=== PATIENT | female | born 1950 | race Two or more races ===

== ENCOUNTER 2025-03-26 17:25 | Inpatient (IN) | payer OTHER ==
[~2025-03-26] VITALS: Ht 162.6 cm; Wt 85.6 kg
--- NOTE | 2025-03-26 17:41 | ED.PDOC ---
History of Present Illness HPI Comments 74 y.o female with PMHx of HTN and arthritis, presents to the ED for an evaluation of an abnormal EKG today. [facility] a 5 day history of dizziness, states she had an EKG done in which showed AFIB but states she has no history of it. Patient states while awaiting at the urgent care, dizziness subsided and now is asymptomatic. Patient denies any chest pain, palpitations, nausea, vomiting, fever, chills. Chief Complaint: Abnormal LAB's Time Seen by MD: 17:34 Reviewed Notes: Nurses Notes, Medications, Allergies Allergies: Coded Allergies: NO KNOWN ALLERGIES (Unverified , 03/26/25) Information Source: Patient, Spouse Mode of Arrival: Ambulatory Severity: Moderate Timing: Hours Duration: Since onset Past Medical History PAST MEDICAL HISTORY: Arthritis, HTN Surgical History: TRANSITIONS RN CARE COORDINATOR History: No Pertinent TRANSITIONS RN CARE COORDINATOR History Family History Family History: Reviewed,noncontributory to illness Social History Smoker: Non-Smoker Alcohol: Denies ETOH Use Drugs: Denies Drug Use Lives In: Home Constitutional: denies: chills, diaphoresis, fatigue, fever, malaise, sweats, weakness, others EENTM: denies: blurred vision, double vision, ear bleeding, ear discharge, ear drainage, ear pain, ear ringing, eye pain, eye redness, hearing loss, mouth pain, mouth swelling, nasal discharge, nose bleeding, nose congestion, nose pain, photophobia, tearing, throat pain, throat swelling, voice changes, others Respiratory: denies: cough, hemoptysis, orthopnea, SOB at rest, shortness of breath, SOB with excertion, stridor, wheezing, others Cardiovascular: denies: chest pain, dizzy spells, diaphoresis, Dyspnea on exertion, edema, irregular heart beat, left arm pain, lightheadedness, palpita tions, PND, syncope, others Gastrointestinal: denies: abdomen distended, abdominal pain, blood streaked april wels, constipated, diarrhea, dysphagia, difficulty swallowing, hematemesis, melena, nausea, poor appetite, poor fluid intake, rectal bleeding, rectal pain, vomiting, others Genitourinary: denies: abnormal vagina bleeding, burning, dyspareunia, dysuria, flank pain, frequency, hematuria, incontinence, pain, , vagina discharge, urgency, others Neurological: denies: dizziness, fainting, headache, left sided numbness, left sided weakness, numbness, paresthesia, pre-existing deficit, right sided numbness, right sided weakness, seizure, speech problems, tingling, tremors, weakness, others Musculoskeletal: denies: back pain, gout, joint pain, joint swelling, muscle pain, muscle stiffness, neck pain, others Integumetry: denies: bruises, change in color, change in hair/nails, dryness, laceration, lesions, lumps, rash, wounds, others Allergic/Immunocompromised: denies: Difficulty Healing, Frequent Infections, Hives, Itching, others Hematologic/Lymphatic: denies: anemia, blood clots, easy bleeding, easy bruis ing, swollen glands, others Endocrine: denies: excessive hunger, excessive sweating, excessive thirst, exc essive urination, flushing, intolerance to cold, intolerance to heat, unexplained weight gain, unexplained weight loss, others Psychiatric: denies: anxiety, bipolar disorder, depression, hopeless, panic disorder, schizophrenia, sleepless, suicidal, others All Other Systems: Reviewed and Negative Physical Exam General Appearance: Moderate Distress, Obese HEENT: Normal ENT Inspection, Pharynx Normal, TMs Normal Neck: Full Range of Motion, Non-Tender, Normal, Normal Inspection Respiratory: Chest Non-Tender, Lungs Clear, No Accessory Muscle Use, No Respiratory Distress, Normal Breath Sounds Cardiovascular: Irregular, No Edema, No JVD, No Murmur, No Gallop Breast Exam: Deferred Gastrointestinal: No Organomegaly, Non Tender, No Pulsatile Mass, Normal Bowel Sounds, Soft Genitalia: Deferred Pelvic: Deferred Rectal: Deferred Extremities: No calf tenderness, Normal capillary refill, No pedal edema Musculoskeletal : Apperance: Normal Neurologic: Alert, carpenter apprentice II-XII nml as Tested, Motor Weakness, Normal Affect, Normal Mood, No Sensory Deficits Cerebellar Function: Normal Reflexes: Normal Skin: Dry, Normal Color, Warm Lymphatic: No Adenopathy Was a procedure done? Was a procedure done?: No Differential Dx Considerations may include: New onset AFIB, Dehydration, Vertigo, Electrolyte imbalance X-Ray, Labs, Meds, VS Vital Signs Date Time Temp Pulse Resp B/P (MAP) Pulse Ox O2 Delivery O2 Flow Rate FiO2 03/26/25 17:42 98 7/28/25 17:32 98.4 77 18 112/71 (85) 97 98.4 Lab Test 03/26/25 19:16 03/26/25 17:59 Range/Units Troponin I High Sensitivity 6 6 </=34 ng/L White Blood Count 8.3 4.4-10.8 10^3/uL Red Blood Count 4.68 4.0-5.20 10^6/uL Hemoglobin 15.2 12.2-16.2 g/dL Hematocrit 44.0 36.0-46.0 % Mean Corpuscular Volume 94.0 80.0-100.0 fL Mean Corpuscular Hemoglobin 32.4 H 28.0-32.0 pg Mean Corpuscular Hemoglobin Concent 34.5 32.0-36.0 g/dL Red Cell Distribution Width 14.6 H 11.8-14.3 % Platelet Count 253 140-450 10^3/uL Mean Platelet Volume 8.2 6.9-10.8 fL Neutrophils (%) (Auto) 68.1 37.0-80.0 % Lymphocytes (%) (Auto) 21.5 10.0-50.0 % Monocytes (%) (Auto) 8.5 0.0-12.0 % Eosinophils (%) (Auto) 1.0 0.0-7.0 % Basophils (%) (Auto) 0.9 0.0-2.0 % Neutrophils # (Auto) 5.7 1.6-8.6 10 ^3/uL Lymphocytes # (Auto) 1.8 0.4-5.4 10 ^3/uL Monocytes # (Auto) 0.7 0-1.3 10 ^3/uL Eosinophils # (Auto) 0.1 0-0.8 10 ^3/uL Basophils # (Auto) 0.1 0-0.2 10 ^3/uL Nucleated Red Blood Cells 0.1 % Sodium Level 144 136-145 mmol/L Potassium Level 4.0 3.5-5.1 mmol/L Chloride Level 105 98-107 mmol/L Carbon Dioxide Level 30 20-31 mmol/L Anion Gap 9 5-15 Blood Urea Nitrogen 18 9-23 mg/dL Creatinine 1.20 H 0.550-1.02 mg/dL Glomerular Filtration Rate Calc 48 >90 mL/min BUN/Creatinine Ratio 15.0 10.0-20.0 Serum Glucose 108 H 74-106 mg/dL Calcium Level 9.7 8.7-10.4 mg/dL Magnesium Level 2.1 1.6-2.6 mg/dL IV Hep-Lock was established The CBC is within normal limits The chemistry panel is within normal limits except for creatinine of 1.2 The patient's troponin level x2 is within normal limits The chest x-ray shows: No sign of any abnormalities The patient is being admitted at this time Images Reviewed?: Images reviewed and evaluated by me Time of 1ST Reevaluation: 17:41 Reevaluation 1ST: Unchanged Patient Education/Counseling: Diagnosis, Treatment, Prognosis Family Education/Counseling: Diagnosis, Treatment, Prognosis SEPSIS Sepsis Screen Physician Orders Urinalysis (03/26/25 17:38) Chest Two Views Routine (03/26/25 17:38) Heplock Iv (03/26/25 17:38) Commercial Loan Manager (03/26/25 17:38) Blood Pressure (03/26/25 17:38) Pulse Oximetry (03/26/25 17:38) Troponin-I Hs (03/26/25 20:38) Electrocardigram (03/26/25 18:38) Electrocardigram (03/26/25 20:38) Vital Signs Date Time Temp Pulse Resp B/P (MAP) Pulse Ox O2 Delivery O2 Flow Rate FiO2 03/26/25 17:42 98 03/26/25 17:32 98.4 77 18 112/71 (85) 97 98.4 Laboratory Tests Test 03/26/25 17:59 White Blood Count 8.3 10^3/uL (4.4-10.8) Departure 1 Departure Time of Disposition: 20:49 Impression: Primary Impression: Autonomic dysfunction Additional Impression: New onset atrial fibrillation Disposition: ADMITTED INPATIENT Admit to: [facility] Condition: Fair Discharged With: Self Critical Care Note Critical Care Time?: Yes (45 min-critical care time only) Stability Stability form required: Yes Unstable for transfer: Telemetry monitoring (Telemetry monitoring required), ED Physician Assesment (Clinical assesment) I personally scribed for JOE MOSER MD ([email or web address]) on 03/26/25 at 17:41. Electronically submitted by Cecilia Dyer ([email or web address]). JOE MOSER MD Mar 26, 2025 17:41
--- NOTE | 2025-03-26 17:43 | ECG ---
[facility] Test Date: 2025-03-26 Test Time: 17:42:29 Pat Name: NIVIA SHAW Department: [facility] ED Room: [address] [place] [address] Gender: F Repairer General: fredy : 1950 Requested By: JOE MOSER Order Number: [id number] Reading MD: Luis Angel Franco Measurements Intervals [place] Rate: 98 P: 0 DE: 0 QRS: 3 QRSD: 85 T: 66 QT: 350 QTc: 447 Interpretive Statements Atrial fibrillation Low voltage, extremity leads Electronically Signed On 03-28-2025 17:50:47 PDT by Luis Angel Franco Please click the below link to view image of tracing.
--- NOTE | 2025-03-26 18:10 | DVH ---
EXAM: XY CHEST TWO VIEWS ROUTINE CLINICAL HISTORY: weakness TECHNIQUE: Frontal and lateral views of the chest WID: COMPARISON: None FINDINGS: Lines and tubes: None Chest: The heart size and pulmonary vasculature is within normal limits. Calcified plaque projects over the aortic arch. No pleural effusion, pneumothorax, or consolidation. The osseous structures are grossly intact. Multilevel thoracic spondylosis. IMPRESSION: No acute cardiopulmonary abnormality.
[2025-03-26 18:33] LABS: Hematocrit 44.0 % (36.0-46.0); Hemoglobin 15.2 g/dL (12.2-16.2); Mean Corpuscular Hemoglobin 32.4 pg (28.0-32.0); Mean Corpuscular Volume 94.0 fL (80.0-100.0); Nucleated Red Blood Cells % 0.1 %
[2025-03-26 18:36] LABS: Chloride 105 mmol/L (98-107); Potassium 4.0 mmol/L (3.5-5.1); Sodium 144 mmol/L (136-145)
[2025-03-26 18:37] LABS: Anion Gap 9 (5-15); Carbon Dioxide 30 mmol/L (20-31)
[2025-03-26 18:38] LABS: Calcium 9.7 mg/dL (8.7-10.4)
[2025-03-26 18:43] LABS: BUN/Creatinine Ratio 15.0 (10.0-20.0); Blood Urea Nitrogen 18 mg/dL (9-23); Magnesium 2.1 mg/dL (1.6-2.6)
[2025-03-26 18:48] LABS: Glucose 108 mg/dL (74-106)
[2025-03-26] MEDS ORDERED: MORPHINE SULFATE INJ 2 MG/ml SYRG IV PRN (21:00)
[2025-03-26] MEDS ORDERED: ACETAMINOPHEN 325 MG TAB PO PRN (21:00)
[2025-03-26] MEDS: ONDANSETRON HCL 4 MG/2 ML VIAL IV ONE (21:00)
[2025-03-26] MEDS ORDERED: NITROGLYCERIN 0.4 MG SL TAB SL PRN (21:00)
[2025-03-26] MEDS ORDERED: HYDROcodone-ACET 5/325MG TAB PO PRN (21:00)
[2025-03-26] MEDS ORDERED: MELATONIN 5 MG TAB PO PRN (21:00)
[2025-03-26] MEDS: AMIODARONE BOLUS KIT 100 ML IV ONE (21:30)
[2025-03-26] MEDS: AMIODARONE 360mg/200mL PREMIX 200 ML IV ONE (21:45)
[2025-03-26 21:50] VITALS: PULSE 91; RESP 16; O2SAT 95
[2025-03-26] MEDS: FAMOTIDINE 20 MG TAB PO SCH (22:00)
[2025-03-26] MEDS ORDERED: METOPROLOL TARTRATE 25 MG TAB PO SCH (22:00)
[2025-03-26 23:03] LABS: Urine Protein, UAD Negative (Negative)
--- NOTE | 2025-03-27 01:05 | DVHHP2 ---
Admitting Diagnosis: New onset a fib with RVR, acute UTI History of Present Illness History Source: Patient, Spouse/Significant Other Exam Limitations: No limitations HPI Mrs. Megan Elam is a 74 y.o female with a history of hypertension and arthritis, who presents for an evaluation of an abnormal EKG today. Patient reports she went to [facility] urgent care due to a 5 day history of dizziness, states she had an EKG done in which showed AFIB but states she has no history of it. Patient states while awaiting at the urgent care, dizziness subsided and now is asymptomatic. Patient denies any chest pain, palpitations, nausea, vomiting, fever, chills. Patient on manager machine atrial fibrillation with RVR 120- 140's, Patient reports she was administered two subcutaneous shots at the urgent care and was told it was for anticoagulation. Patient admitted for further evaluation and treatment. Past Medical History Cardiac: HTN Pulmonary: No pertinent Hx Central Nervous System: No pertinent Hx GI: No pertinent Hx Hemotology/Oncology: No pertinent Hx Hepatobiliary: No pertinent Hx Psychiatric: No pertinent Hx Musculoskeletal: No pertinent Hx Rheumotologic: Other (arthritis) Infectious Disease: No peritnent Hx ENT: No pertinent Hx Renal/: No pertinent Hx Endocrine: No pertinent Hx Dermatology: No pertinent Hx Smoker: No Hx (Negative) Alocohol: None Drugs: None Lives with: With family Domestic Violence: Neg Review of Systems Constitutional: No symptom reported Ears, Nose, & Throat: No symptom reported Eyes: No symptom reported Pulmonary/Respiratory: No symptom reported Cardiovascular: Lt Headedness Gastrointestinal: No symptom reported Genitourinary: No symptom reported Musculoskeletal: No symptom reported Skin: No symptom reported Psychiatric: No symptom reported Endocrine: No symptom reported Hemotologic/Lymphatic: No symptom reported H&P Exam Vital Signs Vital Signs Date Time Temp Pulse Resp B/P (MAP) Pulse Ox O2 Delivery O2 Flow Rate FiO2 03/26/25 21:40 105 03/26/25 17:32 98.4 18 112/71 (85) 97 98.4 General Appeara: Well developed, Well nourished, Normal Appearance Head Exam: Normal inspection Neck Exam: Normal inspection, Non-tender, Normal alignment Eye Exam: bilateral eye Normal inspection, bilateral eye PERRL, bilateral eye EOMI Ear Exam: bilateral ear Auricle normal Nasal Exam: Normal inspection Mouth: Normal Inspection Pulmonary/Respiratory: Normal inspection, Normal breath sounds, Chest non- tender, Lungs clear Cardiovascular/Chest: Normal inspection, Tachycardia, Irregularly irregular Peripheral Pulses: 2+ dorsalis pedis (R), 2+ dorsalis pedis (L), 2+ Radial (R), 2+ Radial (L) Abdominal Exam: Normal bowel sounds, Soft PEDIATRIC PATHOLOGIST Exam: Normal hearing, Normal speech, PERRL Motor/Sensory: Normal sensory function, Normal motor function Neuro/Mental St: Alert, Oriented Eye contact/ Speech: Cooperative, Good eye contact, Normal speech Skin Exam: Normal inspection, Normal color, Warm/dry SEPSIS Sepsis Screen Date sepsis recognized/suspect: Mar 26, 2025 Time Sepsis recognized/suspect: 1729 Recent Procedure: No On Antibiotic Therapy: No Respiratory Rate >20: No Heart Rate >90: No Temp<36 C (96.8 F) or >38.3 C: No SBP <90 or MAP <65 mmHG: No New Acute Mental Status Change: No Is the patient on CPAP, BIPAP,: No Physician Orders Chest Two Views Routine (03/26/25 17:38) Heplock Iv (03/26/25 17:38) Hydrotechnical Specialist (03/26/25 17:38) Blood Pressure (03/26/25 17:38) Pulse Oximetry (03/26/25 17:38) Electrocardigram (03/26/25 18:38) Electrocardigram (03/26/25 20:38) Admit (03/26/25 20:57) * Cardiology Consult (03/26/25 20:57) Echo 2d Mode Cardiac Dop (03/26/25 20:57) Basic Metabolic Panel (03/27/25 05:00) Basic Metabolic Panel (03/28/25 05:00) Basic Metabolic Panel (03/29/25 05:00) Cardiac Diet-2gna,Lofat,Lochol (03/27/25 Breakfast) Nitroglycerin Sublingual (Ntrostat Subli (03/26/25 21:00) Morphine Sulfate Injection (03/26/25 21:00) Stat Ekg For Chest Pain (03/26/25 20:57) Notify Md Of Changes From Base (03/26/25 20:57) Front Counter Clerk For 24 Hours (03/26/25 20:57) Emergency Dysrhythmia Protocol (03/26/25 20:57) Rhythm Strips Once Every Shift (03/26/25 20:57) Oxygen By Nasal Cannula (03/26/25 20:57) Acetaminophen Tablet (Tylenol Tablet) (03/26/25 21:00) Famotidine Tablet (Pepcid Tablet) (03/26/25 22:00) Hydrocodone-Acet 5/325mg Tab ([place] /32 (03/26/25 21:00) Melatonin (Melatonin) (03/26/25 21:00) Troponin-I Hs (03/27/25 06:00) Troponin-I Hs (03/27/25 14:00) Amiodarone 360mg/200ml Premix (Nexterone (03/26/25 21:45) Amiodarone 360mg/200ml Premix (Nexterone (03/27/25 03:45) Enoxaparin Sodium (Lovenox) (03/27/25 10:00) Ceftriaxone Ivpb Rocephin (03/27/25 01:00) Vital Signs Date Time Temp Pulse Resp B/P (MAP) Pulse Ox O2 Delivery O2 Flow Rate FiO2 03/26/25 21:40 105 03/26/25 17:42 98 03/26/25 17:32 98.4 77 18 112/71 (85) 97 98.4 Laboratory Tests Test 03/26/25 17:59 White Blood Count 8.3 10^3/uL (4.4-10.8) Medications Medications Dose Ordered Sig/Sara Route Start Time Stop Time Status Last Admin Dose Admin Amiodarone HCl 100 ml @ 600 mls/hr ONCE ONCE IV 03/26/25 21:30 03/26/25 21:39 DC 03/26/25 21:30 600 MLS/HR Famotidine 20 mg BID PO 03/26/25 22:00 03/26/25 22:00 20 MG Ondansetron HCl 4 mg ONCE ONCE IV 03/26/25 21:00 03/26/25 21:31 DC 03/26/25 21:00 4 MG Labs/Xrays Labs Test 03/26/25 22:40 03/26/25 20:45 03/26/25 17:59 Range/Units Urine Color Light-yellow Yellow Urine Clarity Turbid H Clear Urine pH 6.0 5.0-9.0 Urine Specific [place] 1.010 1.001-1.035 Urine Protein Negative Negative Urine Ketones Negative Negative Urine Blood Negative Negative /uL Urine Nitrite 2+ H Negative Urine Bilirubin Negative Negative Urine Urobilinogen Normal Negative mg/dL Urine Leukocyte Esterase 2+ Negative /uL Urine RBC None seen 0 - 4 /hpf Urine Microscopic WBC 32 H 0-5 /HPF Urine Squamous Epithelial Cells Few <5 /hpf Urine Bacteria Few H None Seen /hpf Urine Hyaline Casts Few 0 - 2 /lpf Urine Mucus Few None Seen Urine Glucose Normal Normal mg/dL Troponin I High Sensitivity 7 </=34 ng/L White Blood Count 8.3 4.4-10.8 10^3/uL Red Blood Count 4.68 4.0-5.20 10^6/uL Hemoglobin 15.2 12.2-16.2 g/dL Hematocrit 44.0 36.0-46.0 % Mean Corpuscular Volume 94.0 80.0-100.0 fL Mean Corpuscular Hemoglobin 32.4 H 28.0-32.0 pg Mean Corpuscular Hemoglobin Concent 34.5 32.0-36.0 g/dL Red Cell Distribution Width 14.6 H 11.8-14.3 % Platelet Count 253 140-450 10^3/uL Mean Platelet Volume 8.2 6.9-10.8 fL Neutrophils (%) (Auto) 68.1 37.0-80.0 % Lymphocytes (%) (Auto) 21.5 10.0-50.0 % Monocytes (%) (Auto) 8.5 0.0-12.0 % Eosinophils (%) (Auto) 1.0 0.0-7.0 % Basophils (%) (Auto) 0.9 0.0-2.0 % Neutrophils # (Auto) 5.7 1.6-8.6 10 ^3/uL Lymphocytes # (Auto) 1.8 0.4-5.4 10 ^3/uL Monocytes # (Auto) 0.7 0-1.3 10 ^3/uL Eosinophils # (Auto) 0.1 0-0.8 10 ^3/uL Basophils # (Auto) 0.1 0-0.2 10 ^3/uL Nucleated Red Blood Cells 0.1 % Sodium Level 144 136-145 mmol/L Potassium Level 4.0 3.5-5.1 mmol/L Chloride Level 105 98-107 mmol/L Carbon Dioxide Level 30 20-31 mmol/L Anion Gap 9 5-15 Blood Urea Nitrogen 18 9-23 mg/dL Creatinine 1.20 H 0.550-1.02 mg/dL Glomerular Filtration Rate Calc 48 >90 mL/min BUN/Creatinine Ratio 15.0 10.0-20.0 Serum Glucose 108 H 74-106 mg/dL Calcium Level 9.7 8.7-10.4 mg/dL Magnesium Level 2.1 1.6-2.6 mg/dL Assessment/Plan Problem List: (1) New onset atrial fibrillation (2) UTI (urinary tract infection) Plan This is a 74 yo female with known history of hypertension, arthritis who presents to the hospital with dizziness and abnormal EKG from Urgent care , patient found to have 1. New onset A fib with RVR 2. history of hypertension 3. history of arthritis Plan Admit Telemetry Cardiology consultation, 2D echocardiogram, serial troponin levels Lovenox 1mg/kg SC BID Monitor electrolytes replenish as needed Antihypertensive for optimal blood pressure management GI ppx Discussed all above with patient and spouse , in [place], both verbalized agreement and understanding of care plan. All questions were answered. Discussed with supervising MD. Plan discussed with: Patient, Other Code Visit Code Visit Total Time (mins): 45 Additional Comments Additional Comments Additional Comments 74-year-old female with a known history of hypertension, osteoarthritis who was seen in urgent care [facility] group for dizziness and found to have normal EKG. Eventually patient was sent to ER. Patient was found to have 1. New onset of AFib with RVR 2. UTI 2. Hypertension 3. osteoarthritis -continue IV amiodarone drip 2D echo cardiology consultation therapeutic Lovenox risks benefits and alternatives of therapeutic Lovenox including life- threatening bleeding disability explained to the patient with the help of detail drafter RN patient understand verbalized understanding and agreeable to plan ADRIEL HODGES Mar 27, 2025 01:05 CARYN QUINTANA MD Mar 27, 2025 17:33
[2025-03-27] MEDS: AMIODARONE 360mg/200mL PREMIX 200 ML IV SCH (03:45)
[2025-03-27] MEDS: cefTRIAXone 1GM/50ML D5W 50 ML IV SCH (04:00)
[2025-03-27 06:50] LABS: Calcium 9.4 mg/dL (8.7-10.4); Sodium 143 mmol/L (136-145)
[2025-03-27 06:51] LABS: Anion Gap 10 (5-15); Carbon Dioxide 25 mmol/L (20-31)
[2025-03-27 06:57] LABS: BUN/Creatinine Ratio 15.5 (10.0-20.0); Blood Urea Nitrogen 15 mg/dL (9-23); Chloride 108 mmol/L (98-107); Glucose 107 mg/dL (74-106); Potassium 3.5 mmol/L (3.5-5.1)
[2025-03-27 07:30] VITALS: PULSE 101; RESP 20; O2SAT 93
[2025-03-27] MEDS: ENOXAPARIN SOD 80 MG/0.8ML SYRINGE SC SCH (09:30)
[2025-03-27 15:15] VITALS: BP 122/69; PULSE 97; RESP 19; TEMP 98; O2SAT 94
[2025-03-27 16:11] VITALS: BP 122/69; PULSE 97; RESP 19; TEMP 98; O2SAT 94
[2025-03-27 16:39] VITALS: BP 110/73; PULSE 61; RESP 19; TEMP 97.9; O2SAT 92
--- NOTE | 2025-03-27 17:36 | DVHSR ---
APPROVED REPORT EXAM: LIMITED Two-dimensional and M-mode echocardiogram with Doppler and color Doppler. Blood Pressure: 125/78 mmHg INDICATION AFIB RISK FACTORS Obesity: Height: 5'4, Weight: 173 DIMENSIONS LVDd4.1 (3.8-5.7cm)LA (2D)4.2 (1.9-4.0cm)Aortic Root2.9 (2.0-3.7cm) LVDs3.1 (2.5-4.0cm)LA (MM) (1.9-4.0cm)Aortic Cusp Exc1.2 (1.5-2.0cm) EF (%) 50.0 (55-70%)Rt. Atrium3.8 (1.9-4.0cm)Asc. Aorta cm IVSd1.2 (0.7-1.1cm)RV (D)3.3 (1.8-2.4cm) PWd1.2 (0.7-1.1cm) Mitral Valve MitralMitral Stenosis E wave0.81m/sMV Mean GR.1mmHg A wavem/sMV Peak GR.94mmHg E/A ratio0.02D MVAcm2 DECEL [id number] 1/2 Timems Aortic Valve Aortic ValveAortic Stenosis V10.77m/Jose Mean GR.5mmHg V21.45m/Jose Peak GR.9mmHg LVOT Diameter1.9 (1.8-2.4cm)Doppler AVA1.50cm2 Tricuspid Valve TR Velocity2.00m/s [id number] Conclusion lvef 50 % normal rv function left atrium enlarged moderately large no severe valve abnormality noted
[2025-03-27 20:00] VITALS: PULSE 96; RESP 17; O2SAT 100
[2025-03-27 21:00] VITALS: BP 141/71; PULSE 68; RESP 18; TEMP 97.8; O2SAT 100
[2025-03-28] VITALS (8 sets, daily range): BP systolic 106–167; BP diastolic 61–91; PULSE 57–65; RESP 16–18; TEMP 97.6–98.6; O2SAT 91–97
[2025-03-28 05:44] LABS: Chloride 107 mmol/L (98-107); Sodium 140 mmol/L (136-145)
[2025-03-28 05:45] LABS: Anion Gap 7 (5-15); Carbon Dioxide 26 mmol/L (20-31)
[2025-03-28 05:48] LABS: Calcium 8.7 mg/dL (8.7-10.4); Potassium 3.3 mmol/L (3.5-5.1)
[2025-03-28 05:50] LABS: BUN/Creatinine Ratio 18.3 (10.0-20.0); Blood Urea Nitrogen 15 mg/dL (9-23)
[2025-03-28 05:52] LABS: Glucose 108 mg/dL (74-106)
--- NOTE | 2025-03-28 12:53 | ECG ---
[facility] Test Date: 2025-03-28 Test Time: 11:33:25 Pat Name: NIVIA SHAW Department: [facility]atoy Room: [address] [place] [address] 4 Gender: F Phthalic Acid Purifier: LUCILA : 1950 Requested By: ELLEN FRANCO Order Number: [id number] Reading MD: Ellen Franco Measurements Intervals [place] Rate: 59 P: 40 NV: 146 QRS: -17 QRSD: 90 T: -9 QT: 563 QTc: 558 Interpretive Statements Sinus rhythm Borderline left axis deviation Nonspecific T abnormalities, anterior leads Prolonged QT interval Electronically Signed On 03-28-2025 13:55:57 PDT by Ellen Franco Please click the below link to view image of tracing.
--- NOTE | 2025-03-28 12:53 | ECG ---
[facility] Test Date: 2025-03-28 Test Time: 11:32:28 Pat Name: NIVIA SHAW Department: [facility] Room: [address] [place] [address] 4 Gender: F Material Requisitioner: LUCILA : 1950 Requested By: ELLEN FRANCO Order Number: [id number] Reading MD: Ellen Franco Measurements Intervals [place] Rate: 58 P: 40 [place]: 145 QRS: -17 QRSD: 92 T: -22 QT: 447 QTc: 440 Interpretive Statements Sinus rhythm Inferior infarct, old Baseline wander in lead(s) V2 Electronically Signed On 03-28-2025 13:55:54 PDT by Ellen Franco Please click the below link to view image of tracing.
[2025-03-28] MEDS: METOPROLOL TARTRATE 25 MG TAB PO ONE (16:13)
--- NOTE | 2025-03-28 17:11 | DVHPN2 ---
Subjective Overnight events noted. Patient is still on amiodarone drip. Changes from previous H/P or p: No Changes Objective Vitals Vital Signs Date Time Temp Pulse Resp B/P (MAP) Pulse Ox O2 Delivery O2 Flow Rate FiO2 03/28/25 16:56 98.1 61 18 167/82 (110) 95 98.1 03/28/25 08:00 Room Air* 0 21 Intake/Output Intake and Output 03/28/25 07:00 Intake Total 783.28 ml Balance 783.28 ml Intake Oral 600 ml IV Total 183.28 ml # Voids 3 Exam HEENT pupils are reactive Neck is supple CVS is S1-S2 irregular irregular rate and rhythm Respiratory bilateral clear GI positive bowel sound Extremity no edema ENGAGEMENT LIAISON no motor deficit Medications Current Medications Medications Dose Ordered Sig/Sara Route Start Time Stop Time Status Last Admin Dose Admin Nitroglycerin 0.4 mg Q5MINP PRN SL 03/26/25 21:00 Morphine Sulfate 2 mg Q30M PRN IV 03/26/25 21:00 Enoxaparin Sodium 80 mg Q12HR SC 03/27/25 10:00 03/28/25 11:14 80 MG Acetaminophen 650 mg Q6HPRN PRN PO 03/26/25 21:00 Famotidine 20 mg BID PO 03/26/25 22:00 03/28/25 11:12 20 MG Acetaminophen/ Hydrocodone Bitart 1 tab Q6HPRN PRN PO 03/26/25 21:00 Melatonin 5 mg ONCE@2200 PRN PO 03/26/25 21:00 Ceftriaxone Sodium 50 ml @ 100 mls/hr DAILY@0100 IV 03/27/25 01:00 03/28/25 01:11 100 MLS/HR Metoprolol Tartrate 25 mg BID PO 03/28/25 22:00 Laboratory Results Laboratory Tests 03/26/25 17:59 03/28/25 05:11 Chemistry Test 03/28/25 05:11 Calcium Level 8.7 mg/dL (8.7-10.4) Urinalysis Test 03/26/25 22:40 Urine Color Light-yellow (Yellow) Urine Clarity Turbid (Clear) H Urine pH 6.0 (5.0-9.0) Urine Specific [place] 1.010 (1.001-1.035) Urine Protein Negative (Negative) Urine Ketones Negative (Negative) Urine Blood Negative /uL (Negative) Urine Nitrite 2+ (Negative) H Urine Bilirubin Negative (Negative) Urine Urobilinogen Normal mg/dL (Negative) Urine Leukocyte Esterase 2+ /uL (Negative) Urine RBC None seen /hpf (0 - 4) Urine Microscopic WBC 32 /HPF (0-5) H Urine Squamous Epithelial Cells Few /hpf (<5) Urine Bacteria Few /hpf (None Seen) H Urine Hyaline Casts Few /lpf (0 - 2) Urine Mucus Few (None Seen) Urine Glucose Normal mg/dL (Normal) Assessment/Plan Assessment/Plan 74-year-old female with a known history of hypertension, osteoarthritis who was seen in urgent care [facility] for dizziness and found to have normal EKG. Eventually patient was sent to ER. Patient was found to have 1. New onset of AFib with RVR 2. UTI 2. Hypertension 3. osteoarthritis -continue IV amiodarone drip, start oral beta zachary, 2D echo cardiology consultation Therapeutic Lovenox for primary prevention of stroke, risks benefits and alternatives therapeutic Lovenox including life-threatening bleeding disability explained to the patient as well as patient's daughter at bedside. [age] understand verbalized understanding and agreeable to plan. Plan discussed with: Patient, Daughter My Orders Orders - CARYN QUINTANA MD Procedure Category Date Status Time Metoprolol Tartrate PHA 03/28/25 In Process Tablet (Lopressor Ta 22:00 Date of Service: Mar 28, 2025 Billing Provider: CARYN QUINTANA MD Common Visit Codes: NOT BILLABLE CARYN QUINTANA MD Mar 28, 2025 17:11
[2025-03-28] MEDS: METOPROLOL TARTRATE 25 MG TAB PO SCH (22:26)
[2025-03-29] MEDS: hydrALAZINE HCL 20 MG/ML VL IV PRN (04:47)
[2025-03-29 04:51] VITALS: BP 161/78; PULSE 60; RESP 20; TEMP 97.5; O2SAT 100
[2025-03-29 06:07] LABS: Anion Gap 10 (5-15); Carbon Dioxide 25 mmol/L (20-31); Sodium 142 mmol/L (136-145)
[2025-03-29 06:12] LABS: Calcium 8.6 mg/dL (8.7-10.4); Chloride 107 mmol/L (98-107); Potassium 3.5 mmol/L (3.5-5.1)
[2025-03-29 06:13] LABS: BUN/Creatinine Ratio 14.3 (10.0-20.0); Blood Urea Nitrogen 10 mg/dL (9-23); Glucose 92 mg/dL (74-106)
[2025-03-29 08:00] VITALS: PULSE 53; RESP 16; O2SAT 95
[2025-03-29 09:00] VITALS: BP 126/66; PULSE 61; RESP 16; TEMP 97.4; O2SAT 95
--- NOTE | 2025-03-29 12:28 | DVHINCON2 ---
Date Seen: Mar 29, 2025 Referring Physician LYNN Mckeon Reason for Consultation New onset atrial fibrillation History of Present Illness This is a Welsh-speaking 74-year-old female patient who presents to emergency room with chief complaint of generalized weakness and shortness of breath. Upon emergency room arrival, a twelve lead electrocardiogram was done and reveals atrial fibrillation with controlled rate. According to ER documentation, the patient went into atrial fibrillation with RVR and was given an amiodarone bolus followed by an amiodarone drip. At the time of assessment, the patient is now in a normal sinus rhythm and amiodarone has been discontinued. Significant past medical history includes hypertension, rheumatoid arthritis, and obesity. The patient states that she seen a golf cart maker one time in the past and was never diagnosed with any kind of arrhythmia. Past Medical History Past medical history reviewed. No other significant than mentioned above. Past Surgical History Family History: Diabetes mellitus G8 BROTHER Hypertension G8 BROTHER G8 BROTHER G8 SISTER G8 SISTER G8 SISTER G8 SISTER Family History Family history reviewed. Social History Denies the use of tobacco, alcohol or illicit drugs. Allergies: Coded Allergies: NO KNOWN ALLERGIES (Unverified , 03/26/25) Home Meds Active Scripts Cephalexin Monohydrate (Cephalexin) 500 Mg Cap, 1 CAP PO TID PRN for 2 Days, #6 CAP Prov:CARYN QUINTANA MD 03/29/25 Apixaban Base (ELIQUIS) 5 Mg Tab, 5 MG PO BID for 30 Days, #60 TAB Prov:CARYN QUINTANA MD 03/29/25 Metoprolol Tartrate (Lopressor) 25 Mg Tb, 25 MG PO BID for 30 Days, #60 TAB Prov:CARYN QUINTANA MD 03/29/25 Home Meds Home medications reviewed. Current Medications Current Medications Medications (Trade) Dose Ordered Sig/Sara Route PRN Reason Start Time Stop Time Status Last Admin Metoprolol Tartrate (Lopressor Tablet) 25 mg BID PO 03/28/25 22:00 03/28/25 22:26 Hydralazine HCl (Apresoline Injection) 10 mg Q6HP PRN IV SBP>160 03/29/25 04:45 03/29/25 04:47 Review of Systems Constitutional: Generalized weakness Ears, Nose, & Throat: No symptom reported Eyes: No symptom reported Neurological: No symptoms reported Pulmonary/Respiratory: Shortness of breath Cardiovascular: No symptom reported Gastrointestinal: No symptom reported Genitourinary: No symptom reported Musculoskeletal: No symptom reported Skin: No symptom reported Psychiatric: No symptom reported Endocrine: No symptom reported Hematologic/Lymphatic: No symptom reported Vital Signs Vital Signs Date Time Temp Pulse Resp B/P (MAP) Pulse Ox O2 Delivery O2 Flow Rate FiO2 03/29/25 10:00 60 126/66 03/29/25 09:00 97.4 16 95 97.4 03/29/25 08:00 Room Air* 0 21 Physical Exam General Appearance: Cooperative. Well-developed. Well-nourished. No acute distress. Pulmonary/Respiratory: Clear, bilateral breaths sounds. Cardiovascular/Chest: Regular rate and rhythm. Peripheral Pulses: 2+ Radial (R). 2+ Radial (L). 2+ Pedal (R). 2+ Pedal (L) Abdominal Exam: Normal bowel sounds. Ankle Exam: Negative ankle edema Lower extremities: Negative lower extremity edema Neuro/Mental Status: A/OX4, coherent. Thoughts/Psych: Normal thought pattern. Appropriate mood and affect. Good judgment and insight. Appearance: No acute distress. Skin Exam: Normal inspection. Normal color. Warm and dry. Labs/Diagnostic Data Labs Test 03/29/25 05:22 03/27/25 13:45 03/26/25 22:40 03/26/25 17:59 Range/Units Sodium Level 142 136-145 mmol/L Potassium Level 3.5 3.5-5.1 mmol/L Chloride Level 107 98-107 mmol/L Carbon Dioxide Level 25 20-31 mmol/L Anion Gap 10 5-15 Blood Urea Nitrogen 10 9-23 mg/dL Creatinine 0.70 0.550-1.02 mg/dL Glomerular Filtration Rate Calc 91 >90 mL/min BUN/Creatinine Ratio 14.3 10.0-20.0 Serum Glucose 92 74-106 mg/dL Calcium Level 8.6 L 8.7-10.4 mg/dL Troponin I High Sensitivity 5 </=34 ng/L Urine Color Light-yellow Yellow Urine Clarity Turbid H Clear Urine pH 6.0 5.0-9.0 Urine Specific [place] 1.010 1.001-1.035 Urine Protein Negative Negative Urine Ketones Negative Negative Urine Blood Negative Negative /uL Urine Nitrite 2+ H Negative Urine Bilirubin Negative Negative Urine Urobilinogen Normal Negative mg/dL Urine Leukocyte Esterase 2+ Negative /uL Urine RBC None seen 0 - 4 /hpf Urine Microscopic WBC 32 H 0-5 /HPF Urine Squamous Epithelial Cells Few <5 /hpf Urine Bacteria Few H None Seen /hpf Urine Hyaline Casts Few 0 - 2 /lpf Urine Mucus Few None Seen Urine Glucose Normal Normal mg/dL White Blood Count 8.3 4.4-10.8 10^3/uL Red Blood Count 4.68 4.0-5.20 10^6/uL Hemoglobin 15.2 12.2-16.2 g/dL Hematocrit 44.0 36.0-46.0 % Mean Corpuscular Volume 94.0 80.0-100.0 fL Mean Corpuscular Hemoglobin 32.4 H 28.0-32.0 pg Mean Corpuscular Hemoglobin Concent 34.5 32.0-36.0 g/dL Red Cell Distribution Width 14.6 H 11.8-14.3 % Platelet Count 253 140-450 10^3/uL Mean Platelet Volume 8.2 6.9-10.8 fL Neutrophils (%) (Auto) 68.1 37.0-80.0 % Lymphocytes (%) (Auto) 21.5 10.0-50.0 % Monocytes (%) (Auto) 8.5 0.0-12.0 % Eosinophils (%) (Auto) 1.0 0.0-7.0 % Basophils (%) (Auto) 0.9 0.0-2.0 % Neutrophils # (Auto) 5.7 1.6-8.6 10 ^3/uL Lymphocytes # (Auto) 1.8 0.4-5.4 10 ^3/uL Monocytes # (Auto) 0.7 0-1.3 10 ^3/uL Eosinophils # (Auto) 0.1 0-0.8 10 ^3/uL Basophils # (Auto) 0.1 0-0.2 10 ^3/uL Nucleated Red Blood Cells 0.1 % Magnesium Level 2.1 1.6-2.6 mg/dL Assessment Atrial fibrillation, newly diagnosed, now normal sinus rhythm Left atrial enlargement Hypertension Urinary tract infection Hypokalemia Rheumatoid arthritis Obesity Plan/Recommendation We will continue with the following plan/recommendations (Dr. Franco): * Transthoracic echocardiogram reveals an EF of 50% with moderately enlarged left atrium * [id number] VASc score: 3 points, HAS BLED score: 1 point * Therapeutic Lovenox while inpatient, transition to NOAC prior to discharge * Beta-zachary for rate control * Monitor and replete electrolytes as needed * Close Cardiac surveillance Thank you for allowing us to care for this patient. Please call with any questions or concerns. Critical care time spent: 44 minutes This medical document was created using an electronic medical record system with voice recognition software and computerized dictation system. Although this document has been carefully reviewed, there might still be some phonetic and typographical errors. Occasional wrong-word or ``sound-alike substitutions may have occurred due to the inherent limitations of voice recognition software. These areas are purely typographical due to imperfections of the software programs and do not reflect any compromise in the patient's medical care. Brit chavez read the chart carefully and recognize, using context, where these substitutions have occurred. Plan discussed with: Patient NYHA Physical activity limitations: NA Date of Service: Mar 29, 2025 Billing Provider: TAI LESLIE Cardiology Common Codes: 34560-CUHEIDA INP/OBS CARE (High) Cardiology Consultation Codes: 03382-[id number] CONSULT <45MIN TAI LESLIE Mar 29, 2025 12:28
[2025-03-29 13:00] VITALS: BP 134/69; PULSE 60; RESP 16; TEMP 97.6; O2SAT 95
[2025-03-29 13:48] LABS: Magnesium 2.0 mg/dL (1.6-2.6); Triglycerides 126.0 mg/dL (< 150)
[2025-03-29 13:50] LABS: Cholesterol 159.0 mg/dL (< 200)
[2025-03-29 13:51] LABS: HDL Cholesterol 37.0 mg/dL (40-59)
[2025-03-29] MEDS ORDERED: APIX5TAB PO (16:24)
[2025-03-29] MEDS ORDERED: MET25T PO (16:24)
[2025-03-29] MEDS ORDERED: CEPH500C PO (16:24)
--- NOTE | 2025-03-29 16:27 | DVHDS2 ---
Discharge Summary Date of Admission Mar 26, 2025 at 20:57 Date of Discharge: Mar 29, 2025 Labs/Diagnostic Data: Laboratory Results Test 03/29/25 13:05 03/29/25 05:22 03/27/25 13:45 03/26/25 22:40 Hemoglobin A1c 5.7 % A1C (<5.7) Magnesium Level 2.0 mg/dL (1.6-2.6) Triglycerides Level 126 mg/dL (< 150) Cholesterol Level 159 mg/dL (< 200) LDL Cholesterol 106 mg/dL (< 100) HDL Cholesterol 37 mg/dL (40-59) Thyroid Stimulating Hormone (TSH) 1.94 uIU/mL (0.55-4.78) Sodium Level 142 mmol/L (136-145) Potassium Level 3.5 mmol/L (3.5-5.1) Chloride Level 107 mmol/L (98-107) Carbon Dioxide Level 25 mmol/L (20-31) Anion Gap 10 (5-15) Blood Urea Nitrogen 10 mg/dL (9-23) Creatinine 0.70 mg/dL (0.550-1.02) Glomerular Filtration Rate Calc 91 mL/min (>90) BUN/Creatinine Ratio 14.3 (10.0-20.0) Serum Glucose 92 mg/dL (74-106) Calcium Level 8.6 mg/dL (8.7-10.4) Troponin I High Sensitivity 5 ng/L (</=34) Urine Color Light-yellow (Yellow) Urine Clarity Turbid (Clear) Urine pH 6.0 (5.0-9.0) Urine Specific [place] 1.010 (1.001-1.035) Urine Protein Negative (Negative) Urine Ketones Negative (Negative) Urine Blood Negative /uL (Negative) Urine Nitrite 2+ (Negative) Urine Bilirubin Negative (Negative) Urine Urobilinogen Normal mg/dL (Negative) Urine Leukocyte Esterase 2+ /uL (Negative) Urine RBC None seen /hpf (0 - 4) Urine Microscopic WBC 32 /HPF (0-5) Urine Squamous Epithelial Cells Few /hpf (<5) Urine Bacteria Few /hpf (None Seen) Urine Hyaline Casts Few /lpf (0 - 2) Urine Mucus Few (None Seen) Urine Glucose Normal mg/dL (Normal) Test 03/26/25 17:59 White Blood Count 8.3 10^3/uL (4.4-10.8) Red Blood Count 4.68 10^6/uL (4.0-5.20) Hemoglobin 15.2 g/dL (12.2-16.2) Hematocrit 44.0 % (36.0-46.0) Mean Corpuscular Volume 94.0 fL (80.0-100.0) Mean Corpuscular Hemoglobin 32.4 pg (28.0-32.0) Mean Corpuscular Hemoglobin Concent 34.5 g/dL (32.0-36.0) Red Cell Distribution Width 14.6 % (11.8-14.3) Platelet Count 253 10^3/uL (140-450) Mean Platelet Volume 8.2 fL (6.9-10.8) Neutrophils (%) (Auto) 68.1 % (37.0-80.0) Lymphocytes (%) (Auto) 21.5 % (10.0-50.0) Monocytes (%) (Auto) 8.5 % (0.0-12.0) Eosinophils (%) (Auto) 1.0 % (0.0-7.0) Basophils (%) (Auto) 0.9 % (0.0-2.0) Neutrophils # (Auto) 5.7 10 ^3/uL (1.6-8.6) Lymphocytes # (Auto) 1.8 10 ^3/uL (0.4-5.4) Monocytes # (Auto) 0.7 10 ^3/uL (0-1.3) Eosinophils # (Auto) 0.1 10 ^3/uL (0-0.8) Basophils # (Auto) 0.1 10 ^3/uL (0-0.2) Nucleated Red Blood Cells 0.1 % Other Laboratory Tests 03/29/25 05:22 03/26/25 17:59 Brief Hx & Hospital Course: 74-year-old female with a known history of hypertension, osteoarthritis who was seen in urgent care [facility] for dizziness and found to have normal EKG. Eventually patient was sent to ER. Patient was found to have new onset of AFib with RVR. Patient also has a UTI. Patient was started on IV amiodarone drip which was switched to beta-zachary. Patient also received therapeutic Lovenox which will be switched to oral anticoagulation for primary prevention of stroke. This was discussed in detail with the patient and patient's family member including daughter and who understand verbalized understanding and agreeable to plan. Patient is being discharged under stable condition. Condition at Discharge: Stable Final Diagnosis/Problems List 74-year-old female with a known history of hypertension, osteoarthritis who was seen in urgent [facility] for dizziness and found to have normal EKG. Eventually patient was sent to ER. Patient was found to have 1. New onset of AFib with RVR 2. UTI 2. Hypertension 3. osteoarthritis Discharge Disposition: Home Discharge Instruct/Medications Diet: Cardiac 2g Na,low cholest Activity: No Restrictions, As Tolerated Follow Up/Referral: Follow up with the PCP in 1-2 weeks Follow up with Dr. Salvador adan 1-2 weeks Medications: Medication as reconciled prescribed. New Medications: Apixaban Base (Eliquis) 5 Mg Tab 5 MG PO BID for 30 Days, #60 TAB Cephalexin Monohydrate (Cephalexin) 500 Mg Cap 1 CAP PO TID PRN for 2 Days, #6 CAP Metoprolol Tartrate (Lopressor) 25 Mg Tb 25 MG PO BID for 30 Days, #60 TAB Scheduled Apixaban Base (Eliquis), 5 MG PO BID Metoprolol Tartrate (Lopressor), 25 MG PO BID Scheduled PRN Cephalexin Monohydrate (Cephalexin), 1 CAP PO TID PRN Discharge Statement: "Patient was advised to return to the ER or call 911 if any headaches, dizziness, shortness of breath, chest pain, abdominal pain, bleeding, fevers, or worsening of medical condition. Patient was counseled about treatment plan, medications, possible side effects, patientverbalized understanding. All questions were answered to the best of my ability. This discharge took greater then 30 minutes in planning, reviewing documentation, counseling the patient, and discussing with other team members." ASSESSMENT ASSESSMENT Assessment 74-year-old female with a known history of hypertension, osteoarthritis who was seen in urgent [facility] for dizziness and found to have normal EKG. Eventually patient was sent to ER. Patient was found to have 1. New onset of AFib with RVR 2. UTI 2. Hypertension 3. osteoarthritis Date of Service: Mar 29, 2025 Billing Provider: CARYN QUINTANA MD Common Visit Codes: NOT BILLABLE CARYN QUINTANA MD Mar 29, 2025 16:27
[2025-03-29 16:39] VITALS: BP 134/86; PULSE 59; RESP 16; TEMP 97.6; O2SAT 97
== END 2025-03-29 18:35 | disposition home or self-care (01) | DRG 309 ==
LOC: ER 17:25 → OVERFLOW 20:57 → TELE-EAST 03-27 17:26
PROVIDERS: ADMIT Nurse Practitioner Family; ATTEND Nurse Practitioner Family
DX: I48.91 Unspecified atrial fibrillation (principal); N39.0 Urinary tract infection, site not specified; Z82.49 Family history of ischemic heart disease and other diseases of the circulatory system; M06.9 Rheumatoid arthritis, unspecified; E87.6 Hypokalemia; E66.9 Obesity, unspecified; I10 Essential (primary) hypertension; Z83.3 Family history of diabetes mellitus; Z79.899 Other long term (current) drug therapy; Z68.29 Body mass index [BMI] 29.0-29.9, adult
CPT/HCPCS: 36415; 71046; 80048; 80061; 81001; 83036; 83735; 84443; 84484; 85025; 93005; 93306; 96365; 96375; 99291; G0378; J2405